=== PATIENT | male | born 1985 | race Caucasian/White ===

== ENCOUNTER 2018-10-13 21:49 | Emergency (ER) | payer SELFPAY ==
[2018-10-13 21:53] VITALS: BP 122/52; PULSE 104; RESP 20; TEMP 36.9; O2SAT 99
[2018-10-13] MEDS: Acetaminophen 500 MG TAB 1000 MG PO (22:05)
[2018-10-13] MEDS: Ibuprofen 600 MG TAB PO (22:05)
[2018-10-13] MEDS: Lidocaine/Prilocaine Cream 5 GM TUBE TP (22:19)
--- NOTE | 2018-10-13 23:07 | W.ED.GENAD ---
Discharge Plan Disposition Patient Disposition: HOME Discharge Details Chief Complaint: Cellulitis Primary Care Provider: None,None ED Provider: Robe Crowley Home Meds and New Rx's Prescriptions: New sulfamethoxazole-trimethoprim [Bactrim DS] 800-160 mg tablet 1 tab PO BID 5 Days Qty: 10 RF: 0 Continued Suboxone 1 EACH film 4 mg PO DAILY RF: 0 Discharge Data Discharge Date/Time-TO BE ENTERED AT DEPARTURE: 10/13/18 23:32 Medical Decision Making Patient presenting to the emergency department chief complaint of abscess under the right arm. Patient states previous episode of this and this has seemed to worsen over the past 5 days after trimming some of his arm hair. Patient denies any puncture wound or direct trauma to the area. Patient has a erythematous superficial fluctuant abscess approximately 4 cm in diameter with surrounding induration . Patient gave verbal consent to incision and drainage. This was performed with patient tolerating appropriately with pain and bleeding after procedure. Patient was placed on Bactrim due to size of abscess and 1 inch packing was placed into the wound. Patient was encouraged to return in 48-72 hours for packing removal or if the wound is healing well I feel that patient is able to remove packing on his own. Patient encouraged to return to the emergency department for new or worsening symptoms otherwise continue to take antibiotic as prescribed and follow-up as needed. HPI General Mode of arrival: ambulatory. Date/Time Provider Initiated Documentation: 10/13/18 21:56. Limitations to Documentation: no limitations. Information obtained by: patient and RN notes reviewed. History of Present Illness 33 year old M presents to the emergency department with the chief complaint of right arm abcess, described as severe and similar to prior episodes, with intensity rated at 7. Quality is described as aching and sharp, and is localized to the right (axilla). Patient reports radiation to (chest). Patient started experiencing this week(s) (2) and it has been constant. No relieving factors improve symptom(s), No exacerbating factors reported . Patient notes no other symptoms.. Patient did receive the following treatments prior to arrival, none Related Data Home Medications Medication Instructions Recorded Confirmed Suboxone 4 mg PO DAILY 05/12/18 10/13/18 sulfamethoxazole-trimethoprim 1 tab PO BID 5 Days #10 tab 10/13/18 [Bactrim DS] Previous Rx's Medication Instructions Recorded sulfamethoxazole-trimethoprim 1 tab PO BID 5 Days #10 tab 10/13/18 [Bactrim DS] Allergies Allergy/AdvReac Type Severity Reaction Status Date / Time No Known Allergies Allergy Unverified 10/13/18 21:57 General Stated Complaint: Cellulitis ROSI: 3 Review of Systems Constitutional Denies body ache(s), Denies chills and Denies fever(s) Cardiovascular Denies chest pain and Denies dyspnea Respiratory Denies dyspnea Gastrointestinal Denies abdominal pain, Denies nausea and Denies vomiting Integumentary/Breasts Reports as per HPI and Reports furuncle Psychiatric Reports anxiety [facility] Medical History Hepatitis C (Chronic) Social History Smoking/Tobacco Use Status: Current-Occasional Exam Const General: cooperative, no acute distress and not ill appearing Orientation: alert, awake and oriented x3 HENMT Mouth: moist mucous membranes Resp Effort & Inspection: normal respiratory effort, able to speak in complete sentences and no respiratory distress Cardio Rate: regular rate Rhythm: regular rhythm Skin General skin exam: erythema (Erythematous fluctuant and indurated abscess seen underneath right axilla) Neuro General: alert, awake, oriented x3, moves all extremities and no focal motor deficits Sensory Exam: no sensory deficits noted Course Vital Signs Temperature 36.9 C 10/13/18 21:53 Pulse 104 H 10/13/18 21:53 Respiratory Rate 20 10/13/18 21:53 Blood Pressure 122/52 L 10/13/18 21:53 Pulse Oximetry 99 10/13/18 21:53 Temperature 36.9 C 10/13/18 21:53 Temperature Source Temporal Artery Scan 10/13/18 21:53 Pulse 104 H 10/13/18 21:53 Respiratory Rate 20 10/13/18 21:53 Respiratory Effort Non-Labored 10/13/18 21:53 Blood Pressure 122/52 L 10/13/18 21:53 Blood Pressure Position Sitting 10/13/18 21:53 Pulse Oximetry 99 10/13/18 21:53 Oxygen Delivery Method Room Air 10/13/18 21:53 Oxygen Flow Rate 0 10/13/18 21:53 Pain Level 7 10/13/18 21:53 Procedures Abscess I/D Site: Upper Extremity (axillia) Side (if applicable): Right Sedation/analgesia: None Local Anesthetic: Lidocaine 1% Amount of anesthesia used (mL): 8 Technique: Incised with #11 Blade Amount of fluid expressed (mL): 6 Irrigation: No Packing used?: Plain Complications: Pain and Bleeding
[2018-10-14 00:08] VITALS: BP 122/52; PULSE 104; RESP 20; TEMP 36.9; O2SAT 99
[2018-10-14] MEDS: Sulfameth/Trimeth DS TAB 1 TAB PO (00:09)
== END 2018-10-13 23:32 | disposition home or self-care (01) ==
PROVIDERS: Emergency Provider Nurse Practitioner Family
DX: L02.411 Cutaneous abscess of right axilla (principal); B95.61 Methicillin susceptible Staphylococcus aureus infection as the cause of diseases classified elsewhere
CPT/HCPCS: 10061; 87077; 87070; 87186; 87205

== ENCOUNTER 2019-02-21 15:45 | Emergency (ER) | payer SELFPAY ==
[2019-02-21 15:53] VITALS: BP 158/99; PULSE 72; RESP 18; TEMP 36.8; O2SAT 96
--- NOTE | 2019-02-21 16:03 | ED.GENADUL_ITS ---
Discharge Plan Disposition Patient Disposition: HOME Condition: Stable Discharge Details Chief Complaint: DentalOral Clinical Impression: Dental infection Primary Care Provider: None,None ED Provider: Aurelio Dolan Home Meds and New Rx's Prescriptions: New penicillin V potassium 500 mg tablet 500 mg PO QID 7 Days Qty: 28 RF: 0 ketorolac 10 mg tablet 10 mg PO Q6H PRN (Reason: pain) 5 Days Qty: 20 RF: 0 No Action buprenorphine-naloxone [Suboxone] 1 EACH film 4 mg PO DAILY RF: 0 naproxen sodium [Aleve] 220 mg Tablet RF: 0 Discharge Instructions Additional Instructions: you can take 1000mg tylenol every 6 hours. And you can take either ibuprofen 600mg or 10mg ketorolac every 6 hours as well, do not take ibuprofen and ketorolac together follow up with your dentist within a week if you have difficulty breathing or inability to swallow return to the emergency department Stand Alone Forms: Work Release Medical Decision Making 33 yo male comes in with left lower dental pain since yesterday. Denies difficulty swallowing or breathing and no fevers. on exam he is speaking in full sentences. No submandibular swelling, no restricted neck movements, ,no pain over hyoid, no findigns to suggest ludwigs, rpa, travel pta, epiglotitis. He has numerous eroded teeth with caries and has pain with percussion to the left lower mid molar that is severely eroded and where his pain is. Will start him on abx, advised f/u with dentist and return precautions given Differential Diagnosis dental pain, abscess, pulpitis HPI General Mode of arrival: ambulatory . Date/Time Provider Initiated Documentation: 02/21/19 15:53 . Limitations to Documentation: no limitations . Information obtained by: patient . History of Present Illness 33 year old M presents to the emergency department with the chief complaint of left lower tooth pain, described as moderate, Quality is described as aching, and is localized to the mouth. Patient reports no radiation. Patient started experiencing this day(s) (1) and it has been constant. No relieving factors improve symptom(s), No exacerbating factors reported . Patient notes no other symptoms.. Patient did receive the following treatments prior to arrival, NSAID Related Data Home Medications Medication Instructions Recorded Confirmed buprenorphine-naloxone [Suboxone] 4 mg PO DAILY 05/12/18 10/13/18 ketorolac 10 mg PO Q6H PRN 5 Days #20 tab 02/21/19 naproxen sodium [Aleve] 02/21/19 penicillin V potassium 500 mg PO QID 7 Days #28 tab 02/21/19 Previous Rx's Medication Instructions Recorded ketorolac 10 mg PO Q6H PRN 5 Days #20 tab 02/21/19 penicillin V potassium 500 mg PO QID 7 Days #28 tab 02/21/19 Allergies Allergy/AdvReac Type Severity Reaction Status Date / Time No Known Allergies Allergy Unverified 10/13/18 21:57 General Stated Complaint: DentalOral ROSI: 4 Review of Systems Review of Systems All systems reviewed & are unremarkable except as noted in HPI and below Constitutional Denies chills, Denies fever(s) and Denies weakness ENT Denies change in voice Cardiovascular Denies chest pain and Denies dyspnea Respiratory Denies cough and Denies dyspnea Gastrointestinal Denies abdominal pain, Denies nausea and Denies vomiting Genitourinary Denies dysuria Integumentary/Breasts Denies rash Neurologic Denies weakness Psychiatric Denies depression [facility] Medical History Hepatitis C (Chronic) Social History Smoking/Tobacco Use Status: Current-Occasional Substance use type: marijuana Do you feel safe at home: Yes Do you feel safe in your relationship?: Yes Exam Const General: no acute distress Orientation: alert HENMT Head: normal to inspection Ears: external ears normal General nose exam: external nose normal Mouth: moist mucous membranes Eyes General: appearance normal, both eyes and all related structures Neck Neck: normal visual inspection Resp Effort & Inspection: normal respiratory effort and able to speak in complete sentences Cardio Rate: regular rate Skin General skin exam: no rashes or lesions noted Neuro General: alert and oriented x3 Extrem General: normal to inspection Psych Mental Status: mental status grossly normal Course Vital Signs Temperature 36.8 C 02/21/19 15:53 Pulse 72 02/21/19 15:53 Respiratory Rate 18 02/21/19 15:53 Blood Pressure 158/99 H 02/21/19 15:53 Pulse Oximetry 96 02/21/19 15:53 Temperature 36.8 C 02/21/19 15:53 Temperature Source Temporal Artery Scan 02/21/19 15:53 Pulse 72 04/29/19 15:53 Respiratory Rate 18 02/21/19 15:53 Respiratory Effort 02/21/19 15:56 Blood Pressure 158/99 H 02/21/19 15:53 Blood Pressure Position Sitting 02/21/19 15:53 Pulse Oximetry 96 02/21/19 15:53 Oxygen Delivery Method Room Air 02/21/19 15:53 Oxygen Flow Rate 0 02/21/19 15:53 Pain Level 10 02/21/19 15:53
== END 2019-02-21 16:10 | disposition home or self-care (01) ==
LOC: ER 16:12
PROVIDERS: Emergency Provider Emergency Medicine
DX: K04.7 Periapical abscess without sinus (principal); F17.210 Nicotine dependence, cigarettes, uncomplicated
CPT/HCPCS: 99283

== ENCOUNTER 2019-11-03 20:00 | Emergency (ER) | payer SELFPAY ==
--- NOTE | 2019-11-03 20:29 | ED.GENADUL_ITS ---
Discharge Plan Disposition Patient Disposition: HOME Condition: Good Discharge Details Chief Complaint: DentalOral Clinical Impression: Pain, dental Primary Care Provider: None,None ED Provider: Celestine Genao Home Meds and New Rx's Prescriptions: New penicillin V potassium 500 mg tablet 500 mg PO QID 10 Days Qty: 40 RF: 0 No Action buprenorphine-naloxone [Suboxone] 1 EACH film 4 mg PO DAILY RF: 0 naproxen sodium [Aleve] 220 mg Tablet RF: 0 Discharge Instructions Instructions: Toothache (ED) Additional Instructions: Please follow-up closely with your dentist. Please take the antibiotic as directed with food. Please stick with an easy diet of bananas rice applesauce. Please take 1000 mg of Tylenol every 6 hours and 800 mg of ibuprofen every 6 hours as needed for pain. If you would like the dental block we talked about please return I can provide this for you. If you notice any worsening of your symptoms, or any new symptoms such as vomiting, diarrhea, fever, chills, shortness of breath, chest pain, numbness, weakness, or fainting , please return immediately to the emergency department for reevaluation. Please follow up with your primary care provider as soon as possible for reassessment and reevaluation. As always, it was a pleasure participating in your medical care today. Stand Alone Forms: Work Release Medical Decision Making 34-year-old male with a past medical history of hepatitis C and notably poor dentition presents for dental pain. The patient has seen a dentist and is scheduled for follow-up with them but is currently working through insurance issues. Patient has had mild nausea today with his dental pain and his missed work. He is requesting a work note. Exam demonstrates severe dental caries worse in the left lower molars, no evidence of periapical abscess, Michael's angina, or meningeal symptoms. No other abnormalities. Abdomen is nontender, no epigastric or abdominal tenderness whatsoever, he states that this component is much better. Patient does not want a dental block and has refused this option. We will give penicillin for suspected pulpitis, recommend continued NSAIDs, and close follow-up with dentist. Work note has been given. We will give the first dose of antibiotic here. I have extensively reviewed the treatment plan and discharge instructions with the patient. I have addressed all patient concerns at this time. The patient was made aware of what symptoms to monitor for that would warrant a return to the emergency department. Discussed the plan with the patient, they demonstrate verbal understanding and agreement with our assessment and plan at this time. HPI General Date/Time Provider Initiated Documentation: 11/03/19 20:20 . HPI Narrative: 34-year-old male with no past medical history except for hepatitis C who presents today for evaluation of lower dental pain and mild nausea. Patient states that he has a history of severe dental caries, he is scheduled to see a dentist later this month, but is currently working through insurance issues. He presents today for stating that the pain in his teeth is been getting worse, he missed work today would like a work note. He denies any significant discharge, he does admit to occasional chills but no fever. He denies chest pain or shortness of breath or abdominal pain. Currently his nausea has resolved and his stomach is feeling much better. No other complaints at this time. No complaint of hematemesis, diarrhea, hematochezia melena or acholic stool, chest pain, neck pain, or headache. Related Data Home Medications Medication Instructions Recorded Confirmed buprenorphine-naloxone [Suboxone] 4 mg PO DAILY 05/12/18 10/13/18 naproxen sodium [Aleve] 02/21/19 penicillin V potassium 500 mg PO QID 10 Days #40 tab 11/03/19 Previous Rx's Medication Instructions Recorded penicillin V potassium 500 mg PO QID 10 Days #40 tab 11/03/19 Allergies Allergy/AdvReac Type Severity Reaction Status Date / Time No Known Allergies Allergy Unverified 11/03/19 20:37 General ROSI: 4 Review of Systems All systems reviewed & are unremarkable except as noted in HPI and below [facility] Social History Smoking/Tobacco Use Status: Current-Occasional Substance use type: marijuana Do you feel safe at home: Yes Do you feel safe in your relationship?: Yes Exam Narrative Exam Narrative: 1.Const: Well-nourished, Well-developed, appearing stated age 2.Eyes: PERRL, no conjunctival injection, and symmetrical lids. 3.ENT: Atraumatic external nose and ears. Moist MM. Neck: Symmetric, trachea midline, No thyromegaly. No evidence of Ludewig's angina patient demonstrates good movement of cervical neck. There is no nuchal rigidity, no nuchal tenderness. Patient is able to flex the neck without any difficulty or significant pain. Negative Kernig's and Brudzinski sign. Notably poor dentition throughout, severe dental caries and tooth decay is present. Worse in the left lower molars. No evidence of fluctuance or periapical abscess. Tympanic membranes are clear. 4.CVS: +S1/S2, No murmurs or gallops. Peripheral pulses 2+ and equal in all extremities. Brisk capillary refill in all extremities. 5.RESP: Unlabored respiratory effort. Clear to auscultation bilaterally. No wheezes rales or rhonchi 6.GI: Soft, Nontender/Nondistended, No hepatosplenomegaly. No guarding or lesa ound. No pain or McBurney's point, negative Goldberg sign. 7.MSK: Normocephalic/Atraumatic, Extremities w/o deformity or ttp No cyanosis or clubbing, Normal movement of all extremities 8.Skin: Warm, Dry. No rashes or lesions. 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 Sensation grossly intact, no focal neurologic deficits. 10.Psych: (AAO) x3. Appropriate mood and affect
[2019-11-03 20:32] VITALS: PULSE 79; TEMP 36.4; O2SAT 98
[2019-11-03] MEDS: Amoxicillin 500 MG CAP PO (20:40)
== END 2019-11-03 20:40 | disposition home or self-care (01) ==
LOC: ER 20:48
PROVIDERS: Emergency Provider Student in an Organized Health Care Education/Training Program
DX: R68.84 Jaw pain (principal); K08.89 Other specified disorders of teeth and supporting structures; R11.0 Nausea
CPT/HCPCS: 99283

== ENCOUNTER 2019-12-10 02:38 | Emergency (ER) | payer SELFPAY ==
[2019-12-10] VITALS (55 sets, daily range): BP systolic 103–191; BP diastolic 58–110; PULSE 59–119; RESP 11–27; TEMP 36.6–37.2; O2SAT 93–100
--- NOTE | 2019-12-10 02:51 | W.ED.GENAD ---
Discharge Plan Disposition Patient Disposition: HOME Condition: Improving Discharge Details Chief Complaint: OD/Poison Clinical Impression: Drug reaction Primary Care Provider: None,None ED Provider: Rere Kapadia Home Meds and New Rx's Prescriptions: Continued buprenorphine-naloxone [Suboxone] 1 EACH film 4 mg PO DAILY RF: 0 naproxen sodium [Aleve] 220 mg Tablet RF: 0 Discharge Instructions Additional Instructions: Encourage water intake. Please do not take any other illicit drugs. Take all new medications were prescribed. You need follow-up with primary care, your liver enzymes are highly elevated this is likely associated with your known hepatitis C. Our childcare center administrator will reach out to you this week regarding follow-up appointment. If you develop any new or worsening symptoms please seek care urgently once again. Medical Decision Making <Aurelio Dolan MD - Last Filed: 12/10/19 07:15> 34 yo male who arrives in police custody after he was banging on the door of someone's house who did not know him in -19 deg F weather in shorts and no shirt and acting agitated and hearing voices per PD. Pt reports taking some drug from someone and is not sure what the drug was about 2 hours ago by mouth. He has a normal gait, dilated pupils that do react to light, no focal motor or sensation deficits, does note hearing things that aren't there but won't describe what he hears, clear speech though is pressured. He intermittently tries to get out of bed and feel he is at risk for harming himself and others in his current state and feel he requires chemical restraint. Will administer 5mg haldol and 2mg ativan IM and obtain lab work and monitor. Suspect side effects from drugs, likely sympathomimetic. PD advised that patient was no longer in custody so was taken out of handcuffs and placed in hospital restraints without issues, will be monitored as still a threat to self and others. pt now sleeping and awakens to verbal stimuli, calm, will stop restraints pt remains HD stable. Awakens to voice but still too drowsy for d/c and suspect this is from the haldol and ativan. Will be signed out to oncoming provider to continue to monitor until awake and alert enough to perform assessment of mental health, if no si/hi and clear mental status when awake do not feel he requires emergent crisis evaluation Differential Diagnosis Differential Diagnosis: drug overdose, side effects Lab Data Lab results reviewed: Yes I reviewed the patient's lab results. ECG Data Attestation: I personally reviewed and interpreted this ECG (s) as follows: Prior ECG tracings: not available for review Interpretation: sinus rhythm, rate of100 pr 146 <CHITRA Galarza - Last Filed: 12/10/19 11:35> Patient 34-year-old male currently sitting in the department. Care was transitioned myself and Dr. Dolan. Please see his note for initial presentation and exam findings. On lab review, patient has notable transaminitis. I did discuss this with the patient who advised that he has a known history of hepatitis C. He has not sought treatment for this historically. He does live in [place] but does not have a local primary care. Will ask care management to be involved with this. Patient has cleared mentally since then taken over his care. Vital signs are stable. He denies any suicidal ideation, thoughts of self-harm or harming others. States that he was simply at a constitution party and take medication he did not know what it was from another person. He does have known hepatitis C and will follow-up with primary care, have requested he be followed up closely. He was given return precautions. He was discharged into his mother's care. Clothing was given to him prior to discharge. All of his questions and concerns were addressed and he is in agreement with this plan. HPI <Aurelio Dolan MD - Last Filed: 12/10/19 07:15> General Mode of arrival: ambulatory. Date/Time Provider Initiated Documentation: 12/10/19 02:39. Information obtained by: patient and police. History of Present Illness 34 year old M presents to the emergency department with the chief complaint of drug ingestion, described as moderate, and it has been constant. No relieving factors improve symptom(s), No exacerbating factors reported . Patient did receive the following treatments prior to arrival, none Related Data Home Medications Medication Instructions Recorded Confirmed buprenorphine-naloxone [Suboxone] 4 mg PO DAILY 05/12/18 12/10/19 naproxen sodium [Aleve] 02/21/19 Allergies Allergy/AdvReac Type Severity Reaction Status Date / Time No Known Allergies Allergy Unverified 12/10/19 02:59 General ROSI: 5 Review of Systems <Aurelio Dolan MD - Last Filed: 12/10/19 07:15> All systems reviewed & are unremarkable except as noted in HPI and below Constitutional Constitutional: Denies chills and Denies fever(s) Cardiovascular Cardiovascular: Denies chest pain and Denies dyspnea Respiratory Respiratory: Denies cough and Denies dyspnea Gastrointestinal Gastrointestinal: Denies abdominal pain, Denies nausea and Denies vomiting PFSH <Aurelio Dolan MD - Last Filed: 12/10/19 07:15> Social History Smoking/Tobacco Use Status: Current-Occasional Tobacco Type: e-cigarettes Substance use type: marijuana Details: unknown other meds Additional Social history: pt unable to answer these questions at this time Exam <Aurelio Dolan MD - Last Filed: 12/10/19 07:15> Const General: anxious and disheveled Orientation: alert HENMT Head: normal to inspection Ears: external ears normal General nose exam: external nose normal Mouth: moist mucous membranes Eyes General: appearance normal, both eyes and all related structures Neck Neck: normal visual inspection Resp Effort & Inspection: normal respiratory effort and able to speak in complete sentences Cardio Rate: regular rate Skin General skin exam: no rashes or lesions noted Neuro General: alert Extrem General: normal to inspection Psych Appearance: disheveled Restraint Face to Face <Aurelio Dolan MD - Last Filed: 12/10/19 07:15> Time of Face to Face Face to Face: Time of Face to Face: 03:40 Patient's Immediate Situation Requiring Restraints/Seclusion: Harm to Staff & Others Patient Response to Restraints: Tolerating without Problems Patient's Medical & Behavioral Condition: patient with likely sympathomimetic toxidrome agitated and auditory hallucinations acting in a way that was threatening to others and self so was placed in restraints for safety Need for Continuation of Restraints Has Been Assessed: Restraints Continued 2nd Face to Face: Time of Face to Face: 04:40 Patient's Immediate Situation Requiring Restraints/Seclusion: Harm to Staff & Others Patient Response to Restraints: Tolerating without Problems Patient's Medical & Behavioral Condition: awakens to verbal stimuli and still agitated, still thraet to others Need for Continuation of Restraints Has Been Assessed: Restraints Continued 3rd Face to Face: Time of Face to Face: 05:40 Patient's Immediate Situation Requiring Restraints/Seclusion: Harm to Staff & Others Patient Response to Restraints: Tolerating without Problems Patient's Medical & Behavioral Condition: sleeping, awakens to verbal stimuli and responds appropirately and follows commands Need for Continuation of Restraints Has Been Assessed: Restraints Terminated Sign Out <Aurelio Dolan MD - Last Filed: 12/10/19 07:15> Sign Out Data: Sign Out Comment: assess mental status when more alert Last updated by Aurelio Dolan MD at 12/10/19 07:16
[2019-12-10] MEDS: Haloperidol 5 MG/ML VIAL IM (03:14)
[2019-12-10] MEDS: LORazepam 2 MG/ML VIAL IM (03:17)
[2019-12-10] MEDS: Normal Saline 1,000 ML 1000 ML IV (03:55)
[2019-12-10 04:05] LABS: BE (Venous) -0.4 mmol/L (-3-3); HCO3 (Venous) 25 mmol/L (22-28); O2 Sat (Venous) 87 % (70-80); TCO2 (Venous) 23 mmol/L (22-29); pCO2 (Venous) 42 mm/Hg (34-47); pH (Venous) 7.38 (7.35-7.45); pO2 (Venous) 55 mm/Hg (28-44)
[2019-12-10 04:06] LABS: Abs Immature Grans 0.02 k/cumm (0.0-0.09); Absolute Basophil Count 0.03 k/cumm (0.0-0.2); Absolute Eosinophil Count 0.01 k/cumm (0.0-0.7); Absolute Lymphocyte Count 0.77 k/cumm (1.2-3.4); Absolute Monocyte Count 0.35 k/cumm (0.11-0.7); Absolute Neutrophil Count 5.62 k/cumm (1.2-6.7); Basophils % 0.4; Eosinophils % 0.1; HCT 37.6 % (40.0-50.0); HGB 12.4 g/dL (13.5-17.5); Immature Grans % 0.3 %; Lymphocytes % 11.3; Mean Corpuscular Hemoglobin 28.4 pg (27.0-33.0); Mean Corpuscular Volume 86.2 fL (80-95); Mean Platelet Volume 9.5 fL (8.0-11.0); Monocytes % 5.1; Neutrophils % 82.8; Platelet Count 279 x1000/uL (130-400); RBC 4.36 m/cumm (4.50-6.00); RBC Distribution Width 14.7 % (11.8-14.1)
[2019-12-10 04:18] LABS: Salicylate < 2.8 mg/dL (2.8-20.0)
[2019-12-10 04:20] LABS: Diff Comment Agrees w/ Instrument; RBC Morphology Normal
[2019-12-10 04:22] LABS: ALT 427 U/L (16-63); AST 173 U/L (15-37); Albumin 4.3 g/dL (3.4-5.0); Alkaline Phosphatase 95 U/L (46-116); Anion Gap 11.6 mmol/L (3-11); BUN 18 mg/dL (7-18); Bilirubin, Total 0.5 mg/dL (0.2-1.0); CO2 25.4 mmol/L (21.0-32.0); CREATININE 1.21 mg/dL (0.70-1.30); Calcium 8.5 mg/dL (8.5-10.1); Chloride 105 mmol/L (98-107); ETHANOL BLOOD < 3.0 mg/dL (<3); Glucose 104 mg/dL (74-106); Magnesium 1.8 mg/dL (1.8-2.4); Sodium 142 mmol/L (136-145); Total Protein 7.7 g/dL (6.4-8.2)
[2019-12-10 04:33] LABS: Acetaminophen < 2 ug/mL (10-30)
--- NOTE | 2019-12-10 05:09 | NUR.NOTE ---
Nursing Note: Correction for restrains: Pt NOT in protective custody. Pt potential harm to others.
--- NOTE | 2019-12-10 06:21 | NUR.NOTE ---
Nursing Note:Pt sleeping wakes easily to verbal, but goes right back to sleep. Unable to void at this time.
--- NOTE | 2019-12-10 08:25 | NUR.NOTE ---
Nursing Note:Ekg done this morning 6, no document. Yogi Documented for Rizwana Bae RN
--- NOTE | 2019-12-10 09:16 | NUR.NOTE ---
Nursing Note: PT care reports received from Michelle HACKETT) at 0800. Pt alert and oriented, resting quietly. Vitals stable.
== END 2019-12-10 10:20 | disposition home or self-care (01) ==
PROVIDERS: Emergency Medicine; Emergency Provider Physician Assistant
DX: T50.905A Adverse effect of unspecified drugs, medicaments and biological substances, initial encounter (principal); R45.1 Restlessness and agitation; Z78.1 Physical restraint status
CPT/HCPCS: 80053; 82805; 86704; 86709; 86803; 87340; 93005; 96360; 96372; 99285; 80320; 80329; 83735; 85025; 93010; J1630; J2060

== ENCOUNTER 2020-01-02 18:29 | Emergency (ER) | payer SELFPAY ==
[2020-01-02 18:34] VITALS: BP 160/80; PULSE 97; RESP 20; TEMP 36.7; O2SAT 98
--- NOTE | 2020-01-02 18:53 | ED.GENADUL_ITS ---
Discharge Plan Disposition Patient Disposition: HOME Condition: Stable Discharge Details Chief Complaint: DentalOral Clinical Impression: Chronic dental pain Primary Care Provider: None,None ED Provider: Minoo Wade Home Meds and New Rx's Prescriptions: New diclofenac potassium 50 mg tablet 50 mg PO TID PRN (Reason: pain) Qty: 10 RF: 0 penicillin V potassium 250 mg tablet 250 mg PO BID 7 Days Qty: 14 RF: 0 No Action buprenorphine-naloxone [Suboxone] 1 EACH film 4 mg PO DAILY RF: 0 naproxen sodium [Aleve] 220 mg Tablet 220 mg PO PRN PRNRF: 0 Discharge Instructions Instructions: Toothache (ED) Additional Instructions: Follow up with primary care provider in 3-5 days. Return to ED sooner if any worsening or concerns. Increase oral fluids. Take medications as directed. You need to see a dentist. Medical Decision Making Patient is a 34-year-old male presents with left-sided upper and lower dental pain which is chronic. He has dental caries noted. He reports that he had a dentist appointment was able to get in and is requesting antibiotics. Denies ear pain, throat pain, any other complaints. Patient prescribed dicyclomine and penicillin 250 mg twice daily. Instructed patient to follow-up with dentist as previously instructed, verbalized understanding. HPI General Mode of arrival: ambulatory . Date/Time Provider Initiated Documentation: 01/02/20 18:37 . Limitations to Documentation: no limitations . Information obtained by: patient . HPI Narrative: Patient is a 34-year-old male presents with left-sided upper and lower dental pain which is chronic. He has dental caries noted. He reports that he had a dentist appointment was able to get in and is requesting antibiotics. Denies ear pain, throat pain, any other complaints. Related Data Home Medications Medication Instructions Recorded Confirmed buprenorphine-naloxone [Suboxone] 4 mg PO DAILY 05/12/18 01/02/20 naproxen sodium [Aleve] 220 mg PO PRN PRN 02/21/19 01/02/20 diclofenac potassium 50 mg PO TID PRN #10 tab 01/02/20 penicillin V potassium 250 mg PO BID 7 Days #14 tab 01/02/20 Previous Rx's Medication Instructions Recorded diclofenac potassium 50 mg PO TID PRN #10 tab 01/02/20 penicillin V potassium 250 mg PO BID 7 Days #14 tab 01/02/20 Allergies Allergy/AdvReac Type Severity Reaction Status Date / Time No Known Allergies Allergy Unverified 01/02/20 18:36 General Stated Complaint: DentalOral ROSI: 4 Review of Systems Narrative: Constitutional: Negative for weight loss, alert and oriented, well groomed, normal body habitus, appears comfortable. HEENT: Denies trauma, headaches, blurry vision, nasal discharge, sore throat, trouble swallowing. Positive dental caries and poor dentition reports left- sided upper and lower dental pain. Chest: Denies chest pain, palpitations, irregular rhythm, hypertension. Respiratory: Denies Shortness of breath, cough, hemoptysis. GI: Denies abdominal pain, nausea, vomiting, diarrhea, constipation. : Denies dysuria, hematuria, flank pain, rectal bleeding. Neuro: Denies dizziness, blurry vision, weakness, syncope, headache or facial numbness. Hematologic: Denies easy bruising, intolerance to heat or cold, hair loss. [facility] Medical History Hepatitis C (Chronic) Social History Smoking/Tobacco Use Status: Former Tobacco Use Quit Date: 02/21/19 Substance use type: marijuana Details: unknown other meds Do you feel safe at home: Yes Do you feel safe in your relationship?: Yes Exam Narrative Exam Narrative: Constitutional: Allert and oriented x3. Appears stated age. Normal body habitus. Head: Normocephalic, no trauma. Eyes: Pupils PERRLA, Red reflex noted, EOM's intact. Eyelids symmetrical withour lesions, discharge, or swelling. ENT: Bilateral TM's WNL, External ear normal to inspection, no mastoid TTP, swelling, or erythema, Nasal turbinates WNL, no nasal discharge. Dental caries noted to the left upper and lower teeth, there is some mild erythema and swelling to the gingiva surrounding. No signs of abscess, no fluctuance, no discharge. No lymphadenopathy. posterior pharynx WNL, no exudate. Chest: RRR, Normal S1, S2, distal pulses intact. Resp: Lungs clear to auscultation bilaterally, no wheezes, rales, or rhonchi. Musculoskeletal: Normal gait, 5/5 strength to all four extremities. Skin: No suspicious rashes or lesions. Capillary refill ?2 sec. Neurologic: Cranial nerves II-XII intact. Alert and oriented x 3. DTR's intact. Hematologic/Lymphatic: No ecchymosis, no lymphadenopathy. Course Vital Signs Vital signs: Vital Signs Temperature 36.7 C 01/02/20 18:34 Pulse 97 H 01/02/20 18:34 Respiratory Rate 20 01/02/20 18:34 Blood Pressure 160/80 H 01/02/20 18:34 Pulse Oximetry 98 01/02/20 18:34 Temperature 36.7 C 01/02/20 18:34 Temperature Source Skin 01/02/20 18:34 Pulse 97 H 01/02/20 18:34 Respiratory Rate 20 01/02/20 18:34 Respiratory Effort Non-Labored 01/02/20 18:37 Blood Pressure 160/80 H 01/02/20 18:34 Blood Pressure Position Sitting 01/02/20 18:34 Pulse Oximetry 98 01/02/20 18:34 Oxygen Delivery Method Room Air 01/02/20 18:34 Oxygen Flow Rate 0 01/02/20 18:34 Pain Level 10 01/02/20 18:34 Comment 01/02/20 18:34
== END 2020-01-02 18:55 | disposition home or self-care (01) ==
PROVIDERS: Emergency Provider Registered Nurse Emergency
DX: R68.84 Jaw pain (principal); G89.29 Other chronic pain
CPT/HCPCS: 99283

== ENCOUNTER 2020-05-11 01:09 | Emergency (ER) | payer SELFPAY ==
[2020-05-11 01:15] VITALS: BP 147/92; PULSE 81; RESP 16; TEMP 37; O2SAT 99
--- NOTE | 2020-05-11 01:16 | ED.GENADUL_ITS ---
Discharge Plan Disposition Patient Disposition: HOME Condition: Good Discharge Details Chief Complaint: DentalOral Clinical Impression: Dental infection Primary Care Provider: None,None ED Provider: Klever Bustamantes and New Rx's Prescriptions: New amoxicillin-pot clavulanate 875-125 mg tablet 1 tab PO BID Qty: 20 RF: 0 Continued buprenorphine-naloxone [Suboxone] 1 EACH film 4 mg PO DAILY RF: 0 naproxen sodium [Aleve] 220 mg Tablet 220 mg PO PRN PRNRF: 0 Discharge Instructions Additional Instructions: Antibiotics as prescribed. Follow-up with dentistry/oral surgery here. Return to ED for increasing facial pain/swelling, difficulty breathing, inability to swallow, spiking fevers. Medical Decision Making Patient will be started on Augmentin. [id number] pain medication as he has been doing. Follow-up with dentistry/oral surgery when possible. Return to ED for increasing facial pain/swelling, difficulty breathing, inability to swallow, spiking fevers. HPI General Mode of arrival: ambulatory . Date/Time Provider Initiated Documentation: 05/11/20 01:16 . Limitations to Documentation: no limitations . Information obtained by: patient . HPI Narrative: Patient presents to ED with worsening dental pain. Patient has multiple decayed and fractured teeth. He has been attempting to get into an oral surgeon but coronavirus has made this almost impossible. He periodically has episodes of increasing pain which is bothering him again for the last few days. He denies fever. He denies difficulty breathing. He denies difficulty swallowing. He is here for antibiotics because it always makes things a little better for while and is hoping to be able to get into oral surgery now that things are a little quieter here in the [facility] in regards to coronavirus. Related Data Home Medications Medication Instructions Recorded Confirmed buprenorphine-naloxone [Suboxone] 4 mg PO DAILY 05/12/18 05/11/20 naproxen sodium [Aleve] 220 mg PO PRN PRN 02/21/19 05/11/20 amoxicillin-pot clavulanate 1 tab PO BID #20 tab 05/11/20 Previous Rx's Medication Instructions Recorded amoxicillin-pot clavulanate 1 tab PO BID #20 tab 05/11/20 Allergies Allergy/AdvReac Type Severity Reaction Status Date / Time No Known Allergies Allergy Unverified 01/02/20 18:36 General ROSI: 4 Review of Systems Constitutional Constitutional: Denies chills and Denies fever(s) ENT Ears, Nose, Mouth, and Throat: Reports dental pain and Denies facial pain [facility] Medical History Hepatitis C (Chronic) Social History Smoking/Tobacco Use Status: Former Tobacco Use Quit Date: 02/21/19 Alcohol Intake: current Alcohol Intake frequency: 3 or more drinks per day Alcohol type: beer Substance use type: marijuana Details: unknown other meds Do you feel safe at home: Yes Do you feel safe in your relationship?: Yes Exam Const General: cooperative, comfortable and no acute distress Orientation: alert and oriented x3 HENMT Head: normocephalic and atraumatic Face and sinus: normal facial exam Other: Multiple decayed and fractured teeth. No obvious gingival abscess. No tenderness or swelling in the floor of the mouth. Neck Neck: trachea midline, supple, no anterior neck swelling and no lymphadenopathy noted
[2020-05-11] MEDS: Amoxicillin 875/Clav. 125 TAB PO (01:32)
--- NOTE | 2020-05-11 03:28 | NUR.NOTE ---
Nursing Note: Referral for a PCP faxed to care management [phone] 05/11/2020 LIB[facility] confirmation received.
== END 2020-05-11 01:32 | disposition home or self-care (01) ==
LOC: ER 01:41
PROVIDERS: Emergency Provider Emergency Medicine
DX: R68.84 Jaw pain (principal); K04.7 Periapical abscess without sinus
CPT/HCPCS: 99283

== ENCOUNTER 2023-07-19 11:15 | Emergency (ER) | payer SELFPAY ==
[2023-07-19 11:18] VITALS: BP 142/96; PULSE 103; RESP 18; O2SAT 97
--- NOTE | 2023-07-19 11:37 | W.ED.GENAD ---
Discharge Plan Disposition Patient Disposition: Home Condition: Stable Discharge Details Clinical Impression: Cellulitis of leg, right Primary Care Provider: None,None ED Provider: Minoo Wade Home Meds and New Rx's Prescriptions: New cephalexin 500 mg capsule 500 mg PO BID 10 Days Qty: 20 0RF Rx Instructions: Take one tablet by mouth twice daily x 10 days No Action buprenorphine-naloxone [Suboxone] 1 EACH film 4 mg PO DAILY naproxen sodium [Aleve] 220 mg Tablet 220 mg PO PRN PRN amoxicillin-pot clavulanate 875-125 mg tablet 1 tab PO BID Qty: 20 0RF Discharge Instructions Instructions: Cellulitis (ED) Additional Instructions: Take the antibiotic as directed, twice daily x 10 days. Keep clean and dry. Do not try to reuben area again. return if any worsening swelling, redness or feeling sicker at any time. Follow up with primary care provider in 3-5 days. Return to ED sooner if any worsening or concerns. Increase oral fluids. Please take Tylenol or Ibuprofen with food every 4-6 hours as needed for pain and swelling. Discharge Data Discharge Date/Time-TO BE ENTERED AT DEPARTURE: 07/19/23 13:33 Medical Decision Making 38-year-old male presents with right knee wound and right lower extremity swelling which began on after jumping off a wooden wall hitting anterior part of his right knee. He reports that swelling began couple days later he does have a erythemic raised area to his anterior knee which he reports was expressing fluid. He reports that he did reuben the area. He does have a history of hepatitis C take Suboxone. He denies any fever or chills. He does have nonpitting edema noted to his right lower extremity. He is currently sleeping in a tent. However he does state that he did sleep in a bed last night. Labs ordered including CBC, CMP, Lactate and Blood cultures x2. Clindamycin 600 mg IVPB. X-ray shows soft tissue swelling otherwise negative. Labs show white blood cell count of 12.33, absolute neutrophils 9.93, lactate within normal limits 1.2, BUN 19 creatinine 1.1 glucose 117. Patient given cephalexin 500 mg twice daily first dose here in the ER and discharged home. Discussed return instructions and follow-up care. Patient verbalized understanding. This text was generated using [employer] system, please disregard any oddities of phrase or misspellings. Medical Records Medical records reviewed: Yes I reviewed the patient's medical records. Imaging Data Radiologic Study: Imaging: X-Ray Radiologist's impression: TECHNIQUE: Imaging protocol: Radiologic exam of the right knee. Views: 3 views. COMPARISON: No relevant prior studies available. FINDINGS: Bones/joints: Normal. Soft tissues: Prepatellar soft tissue swelling IMPRESSION: Prepatellar soft tissue swelling otherwise negative Thank you for allowing us to participate in the care of your patient. Dictated and Authenticated by: Purvi Phillips DO Lab Data Lab results reviewed: Yes I reviewed the patient's lab results. Labs: 07/19/23 12:25 Blood Blood Culture - Pending 07/19/23 12:06 Blood Blood Culture - Pending Laboratory Tests Range/Units 07/19/23 07/19/23 07/19/23 12:06 12:06 12:06 WBC (4.4-10.8) 10^3/uL 12.33 H RBC (4.36-5.78) 10^6/uL 4.51 Hgb (13.5-17.5) g/dL 13.3 L Hct (40.0-50.0) % 41.1 MCV (80-95) fL 91 MCH (27.0-33.0) pg 29.5 MCHC (32.0-36.0) % 32.4 RDW (11.8-14.1) % 13.4 Plt Count (130-400) 10^3/uL 307 MPV (8.0-11.0) fL 9.0 Immature Gran % 0.2 Neutrophils % 80.5 Lymphocytes % 12.2 Monocytes % 6.2 Eosinophils % 0.6 Basophils % 0.3 Nucleated RBC % (0.0-0.3) % 0.0 Absolute Neutrophils (1.2-6.7) 10^3/uL 9.93 H Absolute Lymphocytes (1.2-3.4) 10^3/uL 1.50 Absolute Monocytes (0.1-0.8) 10^3/uL 0.76 Absolute Eosinophils (0.0-0.7) 10^3/uL 0.07 Absolute Basophils (0.0-0.2) 10^3/uL 0.04 VBG Lactate (0.6-1.4) mmol/L 1.2 Sodium (136-145) mmol/L 137 Potassium (3.5-5.1) mmol/L 3.7 Chloride (98-107) mmol/L 99 Carbon Dioxide (21.0-32.0) mmol/L 30.4 Anion Gap (3-11) mmol/L 7.6 BUN (7-18) mg/dL 19 H Creatinine (0.70-1.30) mg/dL 1.1 Est GFR (CKD-EPI 2020) (mL/min/1.73m2) 87.03 Glucose (74-106) mg/dL 117 H Calcium (8.5-10.1) mg/dL 9.3 Magnesium (1.8-2.4) mg/dL 2.0 Total Bilirubin (0.2-1.0) mg/dL 0.6 AST (15-37) U/L 28 ALT (16-63) U/L 63 Alkaline Phosphatase (46-116) U/L 90 Total Protein (6.4-8.2) g/dL 7.8 Albumin (3.4-5.0) g/dL 3.8 HPI General Mode of arrival: ambulatory. Date/Time Provider Initiated Documentation: 07/19/23 11:30. Limitations to Documentation: no limitations. Information obtained by: patient, RN notes reviewed and old records reviewed. HPI Narrative: 38-year-old male presents with right knee wound and right lower extremity swelling which began on after jumping off a wooden wall hitting anterior part of his right knee. He reports that swelling began couple days later he does have a erythemic raised area to his anterior knee which he reports was expressing fluid. He reports that he did reuben the area. He does have a history of hepatitis C take Suboxone. He denies any fever or chills. He does have nonpitting edema noted to his right lower extremity. He is currently sleeping in a tent. However he does state that he did sleep in a bed last night. Related Data Home Medications Medication Instructions Recorded Confirmed buprenorphine 4 mg-naloxone 1 mg 4 mg PO DAILY 05/12/18 05/11/20 sublingual film (Suboxone) naproxen sodium 220 mg tablet 220 mg PO PRN PRN 02/21/19 05/11/20 (Aleve) amoxicillin 875 mg-potassium 1 tab PO BID #20 tabs 05/11/20 clavulanate 125 mg tablet cephalexin 500 mg capsule 500 mg PO BID cellulitis 10 days 07/19/23 #20 caps Previous Rx's Medication Instructions Recorded amoxicillin 875 mg-potassium 1 tab PO BID #20 tabs 05/11/20 clavulanate 125 mg tablet cephalexin 500 mg capsule 500 mg PO BID cellulitis 10 days 07/19/23 #20 caps Allergies Allergy/AdvReac Type Severity Reaction Status Date / Time No Known Allergies Allergy Unverified 01/02/20 18:36 General Stated Complaint: Cellulitis ROSI: 3 Review of Systems All systems reviewed & are unremarkable except as noted in HPI and below Musculoskeletal Musculoskeletal: Reports as per HPI PFSH All Active Problems (Updated 07/19/23 @ 13:04 by Minoo Wade NP) Drug reaction (Acute) Cellulitis of leg, right (Acute) Medical History (Updated 07/19/23 @ 13:04 by Minoo Wade NP) Hepatitis C Social History Smoking/Tobacco Use Status: Former Tobacco Use Quit Date: 02/21/19 Smoking risk assessment performed?: Yes Alcohol Intake: current Alcohol Intake frequency: 3 or more drinks per day Alcohol type: beer Drug use: Occasionally Substance use type: marijuana Details: unknown other meds Housing: homeless Do you feel safe at home: Yes Do you feel safe in your relationship?: Yes Exam Extrem Right lower extremity: knee and lower leg Details: localized swelling Upper/lower leg/hip images: 1. Swelling Knee images: 1. Approximately 3cm x 3 cm area of erythema, with central puncture wound, Surrounding swelling noted. Non pitting edema Course Vital Signs Vital signs: Vital Signs Pulse 103 H 07/19/23 11:18 Respiratory Rate 18 07/19/23 11:18 Blood Pressure 142/96 H 07/19/23 11:18 Pulse Oximetry 97 07/19/23 11:18 Pulse 103 H 07/19/23 11:18 Respiratory Rate 18 07/19/23 11:18 Respiratory Effort Normal 07/19/23 11:20 Blood Pressure 142/96 H 07/19/23 11:18 Blood Pressure Position Sitting 07/19/23 11:18 Pulse Oximetry 97 07/19/23 11:18 Oxygen Delivery Method Room Air 07/19/23 11:18 Oxygen Flow Rate 0 07/19/23 11:18 Pain Level 5 07/19/23 11:18
[2023-07-19 12:16] LABS: Lactate 1.2 mmol/L (0.6-1.4)
[2023-07-19 12:18] LABS: Abs Immature Grans 0.03 10^3/uL (0.0-0.06); Absolute Basophil Count 0.04 10^3/uL (0.0-0.2); Basophils % 0.3; Eosinophils % 0.6; HCT 41.1 % (40.0-50.0); HGB 13.3 g/dL (13.5-17.5); Immature Grans % 0.2; Lymphocytes % 12.2; MCH 29.5 pg (27.0-33.0); MCHC 32.4 % (32.0-36.0); MCV 91 fL (80-95); Monocytes % 6.2; Neutrophils % 80.5; Platelet Count 307 10^3/uL (130-400); RBC 4.51 10^6/uL (4.36-5.78); RDW 13.4 % (11.8-14.1); WBC 12.33 10^3/uL (4.4-10.8)
[2023-07-19 12:20] LABS: Absolute Eosinophil Count 0.07 10^3/uL (0.0-0.7); Absolute Monocyte Count 0.76 10^3/uL (0.1-0.8); Absolute Neutrophil Count 9.93 10^3/uL (1.2-6.7)
[2023-07-19 12:33] LABS: ALT 63 U/L (16-63); AST 28 U/L (15-37); Albumin 3.8 g/dL (3.4-5.0); Alkaline Phosphatase 90 U/L (46-116); Anion Gap 7.6 mmol/L (3-11); BUN 19 mg/dL (7-18); Bilirubin, Total 0.6 mg/dL (0.2-1.0); CO2 30.4 mmol/L (21.0-32.0); CREATININE 1.1 mg/dL (0.70-1.30); Calcium 9.3 mg/dL (8.5-10.1); Chloride 99 mmol/L (98-107); Estimated GFR 87.03 (mL/min/1.73m2); Glucose 117 mg/dL (74-106); Potassium 3.7 mmol/L (3.5-5.1); Sodium 137 mmol/L (136-145); Total Protein 7.8 g/dL (6.4-8.2)
--- NOTE | 2023-07-19 12:44 | DI.RAD_ITS ---
Exam(s) XR KNEE RT 3V AP,LAT,JENNY EXAM: XR KNEE RT 3V AP,LAT,JENNY CLINICAL HISTORY: Injury, swelling. TECHNIQUE: 2D digital imaging was performed of the right knee. Three views obtained. AP, lateral an d PA tunnel views were obtained. COMPARISON: No exams were available for comparison FINDINGS: BONES: No acute fracture is present. No bony destructive lesion is seen. JOINTS: The knee is normally aligned. No joint effusion is seen. SOFT TISSUE: There is soft tissue swelling anterior to the infrapatellar ligament. IMPRESSION: 1. No acute fracture or dislocation. 2. Soft tissue swelling anterior to the infrapatellar ligament. DATA REPOSITORY: RADIATION DOSE DELIVERED:
--- NOTE | 2023-07-19 12:55 | DI.VRAD_ITS ---
PROCEDURE INFORMATION: Exam: XR Right Knee Exam date and time: 07/19/2023 12:39 PM Age: 38 years old Clinical indication: Injury or trauma; Fall; Blunt trauma and swelling (edema); Knee; Right TECHNIQUE: Imaging protocol: Radiologic exam of the right knee. Views: 3 views. COMPARISON: No relevant prior studies available. FINDINGS: Bones/joints: Normal. Soft tissues: Prepatellar soft tissue swelling IMPRESSION: Prepatellar soft tissue swelling otherwise negative Dictated and Authenticated by: Purvi Phillips MD. Ordering:EMBER Hennessy MD
[2023-07-19] MEDS: CLINDAMYCIN 600 MG/50 ML BAG 100 MG IVPB (12:58)
[2023-07-19] MEDS: Cephalexin 500 MG CAP PO (13:29)
[2023-07-19] MEDS: Cephalexin 500 MG CAP, 2 CAPS/BTL PO (13:29)
== END 2023-07-19 13:33 | disposition home or self-care (01) ==
PROVIDERS: Emergency Provider Registered Nurse Emergency
DX: M25.561 Pain in right knee (principal); L03.115 Cellulitis of right lower limb
CPT/HCPCS: 36415; 73562; 80053; 87040; 96374; 99283; 83605; 83735; 85025; 99282

== ENCOUNTER 2023-11-12 17:23 | Emergency (ER) | payer OTHER, SELFPAY ==
[2023-11-12] VITALS (13 sets, daily range): BP systolic 142–155; BP diastolic 77–83; PULSE 74–84; RESP 11–20; TEMP 36.3; O2SAT 97
--- NOTE | 2023-11-12 17:15 | RT.EKG_ITS ---
APPROVED REPORT Exam: Resting ECG Reason for Exam: chest pain Patient Location: E HR:80 bpm ECG Measurements Heart Rate 80 AXIS CO 139 P 49 QRSd 113 QRS 9 QT 376 T 4 QTc 434 Conclusion Sinus normal axis no acute change
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
--- NOTE | 2023-11-12 17:59 | DI.RAD_ITS ---
Exam(s) XR PORTABLE CHEST AP EXAM: XR PORTABLE CHEST AP CLINICAL HISTORY: chest pain. TECHNIQUE: 2D digital imaging was performed. COMPARISON: No exams were available for comparison FINDINGS: Single AP portable view. Heart size is upper normal. The mediastinum is not widened. Lungs are clear. No infiltrates nor obvious pleural effusions. There is a triangular radiopaque foreign body in the right axilla. Measures 6 x 5 mm. IMPRESSION: No acute pulmonary findings on this single AP portable view of the chest. Foreign body in right axilla as described above. DATA REPOSITORY: RADIATION DOSE DELIVERED:
[2023-11-12 18:03] LABS: Absolute Eosinophil Count 0.11 10^3/uL (0.0-0.7); Absolute Neutrophil Count 13.53 10^3/uL (1.2-6.7); Basophils % 0.3; Eosinophils % 0.7; HCT 40.6 % (40.0-50.0); HGB 13.6 g/dL (13.5-17.5); Immature Grans % 0.6; Lymphocytes % 7.4; MCH 29.4 pg (27.0-33.0); MCHC 33.5 % (32.0-36.0); MCV 88 fL (80-95); MPV 9.1 fL (8.0-11.0); Monocytes % 3.7; Neutrophils % 87.3; Platelet Count 327 10^3/uL (130-400); RBC 4.63 10^6/uL (4.36-5.78); RDW 13.5 % (11.8-14.1)
[2023-11-12 18:04] LABS: Absolute Basophil Count 0.05 10^3/uL (0.0-0.2); Absolute Lymphocyte Count 1.15 10^3/uL (1.2-3.4); Absolute Monocyte Count 0.57 10^3/uL (0.1-0.8)
[2023-11-12 18:18] LABS: ALT 64 U/L (16-63); AST 31 U/L (15-37); Albumin 3.8 g/dL (3.4-5.0); Alkaline Phosphatase 95 U/L (46-116); Anion Gap 7.4 mmol/L (3-11); BUN 22 mg/dL (7-18); Bilirubin, Total 0.2 mg/dL (0.2-1.0); CO2 29.6 mmol/L (21.0-32.0); CREATININE 1.4 mg/dL (0.70-1.30); Calcium 9.7 mg/dL (8.5-10.1); Chloride 98 mmol/L (98-107); Estimated GFR 65.16 (mL/min/1.73m2); Glucose 150 mg/dL (74-106); Potassium 4.8 mmol/L (3.5-5.1); Sodium 135 mmol/L (136-145); Total Protein 7.9 g/dL (6.4-8.2); Troponin I < 50 ng/L (< or =60)
[2023-11-12 18:36] LABS: D-Dimer 253 ng/mlFEU (<500)
== END 2023-11-12 19:01 ==
PROVIDERS: Emergency Provider Emergency Medicine
DX: R07.9 Chest pain, unspecified (principal); S40.851A Superficial foreign body of right upper arm, initial encounter; Z87.891 Personal history of nicotine dependence; X58.XXXA Exposure to other specified factors, initial encounter
CPT/HCPCS: 36415; 80053; 93005; 99284; 71045; 84484; 85025; 85379; 93010